=== PATIENT | female | born 1985 | race Caucasian/White ===

== ENCOUNTER 2019-06-27 10:46 | Emergency (ER) | payer OTHER, SELFPAY ==
[2019-06-27] MEDS ORDERED: Ketorolac Tromethamine 30 MG/ML VIAL ONE (12:41)
--- NOTE | 2019-06-27 13:04 | RAD ---
LEFT RIB SERIES WITH A PA VIEW OF THE CHEST INDICATION: Left-sided rib pain after fall against a bathtub COMPARISON: None. FINDINGS: Chest radiograph: The lungs are clear. Heart size is normal. No pleural effusion or pneumothorax is d emonstrated. Left Ribs: No displaced left-sided rib fracture is demonstrated. IMPRESSION: No displaced left-sided rib fracture
== END 2019-06-27 13:43 | disposition home or self-care (01) ==
LOC: ERS 10:46
DX: R07.81 Pleurodynia (principal); F20.9 Schizophrenia, unspecified; F17.210 Nicotine dependence, cigarettes, uncomplicated; W18.2XXA Fall in (into) shower or empty bathtub, initial encounter
CPT/HCPCS: 94799; 96372; J1885